=== PATIENT | male | born 1990 | race Caucasian/White ===

== ENCOUNTER 2017-06-01 09:21 | Emergency (ER) | payer SELFPAY ==
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
[2017-06-01 10:15] VITALS: BP 138/75
[2017-06-01] MEDS ORDERED: predniSONE TAB* 20 MG PO ONE (10:44)
[2017-06-01] MEDS ORDERED: Albuterol/Ipratropium NEB.SOL* Albuterol 2.5 MG/Ipratropium 0.5 MG 3 ML INH ONE (10:44)
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
== END 2017-06-01 11:15 | disposition home or self-care (01) ==
LOC: UCCORT 09:21
DX: J70.5 Respiratory conditions due to smoke inhalation (principal); R05 Cough; R06.2 Wheezing; Z88.1 Allergy status to other antibiotic agents
CPT/HCPCS: 71046; 99202; A9270-GY; G0463; J7512

== ENCOUNTER 2017-06-05 12:21 | Emergency (ER) | payer SELFPAY ==
[2017-06-05 14:27] VITALS: BP 128/68
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
== END 2017-06-05 15:14 | disposition home or self-care (01) ==
LOC: UCCORT 12:21
DX: Z51.89 Encounter for other specified aftercare (principal)
CPT/HCPCS: 99211; G0463

== ENCOUNTER 2017-07-07 12:54 | Emergency (ER) | payer SELFPAY ==
[2017-07-07 16:00] VITALS: BP 129/90
--- NOTE | 2017-07-07 17:19 | RAD ---
INDICATION: Knee pain after injury COMPARISON: Similar knee radiograph December 04, 2013 TECHNIQUE: 4 view radiograph of the right knee. FINDINGS: Along the medial margin of the femoral condyle is a stable well-circumscribed bony focus. The visualized bones are well-corticated and properly aligned. The joint spaces are properly maintained. There is a small joint effusion. There is no acute fracture, dislocation or other focal bony abnormality. IMPRESSION: There is a small right knee joint effusion that appears similar to the December 04, 2013 If the patient's symptoms persist, follow-up imaging is recommended.
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
== END 2017-07-07 17:41 | disposition home or self-care (01) ==
LOC: UCCORT 12:54
DX: S83.91XA Sprain of unspecified site of right knee, initial encounter (principal); X50.0XXA Overexertion from strenuous movement or load, initial encounter; Y93.89 Activity, other specified; Y92.9 Unspecified place or not applicable; Y99.0 Civilian activity done for income or pay
CPT/HCPCS: 99212; G0463

== ENCOUNTER 2017-10-08 10:06 | Emergency (ER) | payer SELFPAY ==
[2017-10-08 10:27] VITALS: BP 136/86
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
[2017-10-08] MEDS ORDERED: Ibuprofen TAB* 600 MG PO ONE (10:41)
--- NOTE | 2017-10-08 11:30 | RAD ---
INDICATION: Right knee pain COMPARISON: July 07, 2017 TECHNIQUE: AP, lateral, tunnel, and sunrise views were obtained. FINDINGS: There are condylar irregularities with spurring. There is minor patellofemoral spurring. There is no acute bony change. There is no significant joint effusion. IMPRESSION: MODERATE TRICOMPARTMENTAL OSTEOARTHRITIC CHANGE.
== END 2017-10-08 11:40 | disposition home or self-care (01) ==
LOC: UCEAST 10:06
DX: Z88.1 Allergy status to other antibiotic agents (principal); M25.562 Pain in left knee; W17.89XA Other fall from one level to another, initial encounter; Y93.01 Activity, walking, marching and hiking; Y92.9 Unspecified place or not applicable; Y99.0 Civilian activity done for income or pay
CPT/HCPCS: 99211; A9270-GY; G0463

== ENCOUNTER 2018-09-28 07:23 | Emergency (ER) | payer BC ==
[2018-09-28 07:41] VITALS: BP 135/79
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
== END 2018-09-28 07:54 | disposition home or self-care (01) ==
LOC: UCCORT 07:23
DX: K52.9 Noninfective gastroenteritis and colitis, unspecified (principal); R10.9 Unspecified abdominal pain; Z88.8 Allergy status to other drugs, medicaments and biological substances
CPT/HCPCS: 99211; G0463

== ENCOUNTER 2019-06-07 09:34 | Emergency (ER) | payer BC ==
[2019-06-07 09:48] VITALS: BP 138/82
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
[2019-06-07 10:07] LABS: Influenza A Molecular NEGATIVE (Negative); Influenza B Molecular NEGATIVE (Negative)
== END 2019-06-07 10:14 | disposition home or self-care (01) ==
LOC: UCCORT 09:34
DX: B34.9 Viral infection, unspecified (principal); R09.81 Nasal congestion; R09.82 Postnasal drip; R05 Cough; R11.0 Nausea; R53.83 Other fatigue; R68.83 Chills (without fever); R09.89 Other specified symptoms and signs involving the circulatory and respiratory systems; J02.9 Acute pharyngitis, unspecified; R19.7 Diarrhea, unspecified; Z88.8 Allergy status to other drugs, medicaments and biological substances
CPT/HCPCS: 99212; G0463